=== PATIENT | male | born 1965 | race Caucasian/White ===

== ENCOUNTER 2021-05-04 10:19 | Emergency (ER) | payer MEDICAID ==
[~2021-05-04] VITALS: Ht 177.8 cm; Wt 109.4 kg
[~2021-05-04 10:19] MED LIST: DICL1TAB2 PO; IBUP-1984 PO
[2021-05-04 10:26] VITALS: BP 126/76
[2021-05-04] MEDS ORDERED: MUPI22OI30 TOP (11:48)
[2021-05-04] MEDS ORDERED: SULF1TAB49 PO (11:48)
== END 2021-05-04 11:59 | disposition home or self-care (01) ==
LOC: ER 10:20
DX: L03.114 Cellulitis of left upper limb (principal); L03.115 Cellulitis of right lower limb; Z86.14 Personal history of Methicillin resistant Staphylococcus aureus infection; Z98.890 Other specified postprocedural states; Z79.2 Long term (current) use of antibiotics; Z79.899 Other long term (current) drug therapy
CPT/HCPCS: 99283

== ENCOUNTER 2022-10-06 21:17 | Emergency (ER) | payer MEDICAID ==
[~2022-10-06] VITALS: Ht 177.8 cm; Wt 95.5 kg
[2022-10-07] MEDS ORDERED: DOXYCYCLINE 100MG CAPSULE PO STA (00:16)
[2022-10-07] MEDS ORDERED: bacitracin 15gm ointment TP ONE (00:20)
[2022-10-07] MEDS ORDERED: TETanus/Pertussis (Acell)/Diphther VAC/PF (Tdap-Adult) 0.5ml syringe IMVAC ONE (00:20)
[2022-10-07] MEDS ORDERED: cephalexin 250mg capsule PO ONE (00:20)
[2022-10-07] MEDS ORDERED: ondansetron 4mg rapidly disintigrating tab PO ONE (00:20)
[2022-10-07] MEDS ORDERED: NEOM28.44 TP (00:27)
[2022-10-07] MEDS ORDERED: CEPH250T PO (00:27)
[2022-10-07] MEDS ORDERED: DOXY100C76 PO (00:27)
[2022-10-07 01:00] VITALS: BP 125/78
== END 2022-10-07 01:01 | disposition home or self-care (01) ==
LOC: ER 21:23
DX: S60.420A Blister (nonthermal) of right index finger, initial encounter (principal); E11.9 Type 2 diabetes mellitus without complications; X58.XXXA Exposure to other specified factors, initial encounter; Y93.89 Activity, other specified; Y92.89 Other specified places as the place of occurrence of the external cause; Y99.8 Other external cause status
CPT/HCPCS: 10140; 82948; 90471; 90715; 99284; A6449